=== PATIENT | male | born 1955 | race Caucasian/White ===

== ENCOUNTER 2017-03-30 18:59 | Emergency (ER) | payer MEDICARE, OTHER ==
[~2017-03-30] VITALS: Ht 160 cm; Wt 68.5 kg
[2017-03-30 19:03] VITALS: Ht 160 cm; Wt 68.5 kg
[2017-03-30] MEDS ORDERED: CEPHALEXIN 500 MG CAP PO STA (21:15)
[2017-03-30] MEDS ORDERED: LIDOCAINE 2% (MDV) 20 ML INJ INJ STA (21:15)
[2017-03-30] MEDS ORDERED: TRIMETHOPRIM/SULFAMETHOX (DS) TAB PO STA (21:15)
[2017-03-30] MEDS ORDERED: DIPHTH/TET/ACEL PERTUSS (ADULT) 0.5 ML VIAL IM* ONE (21:30)
[2017-03-30] MEDS ORDERED: SULF1TAB31 PO (22:06)
[2017-03-30] MEDS ORDERED: CEPH-443 PO (22:06)
--- NOTE | 2017-03-31 00:15 | ERD ---
ER Documentation Chief Complaint Date/Time DATE: 03/30/17 TIME: 23:50 Chief Complaint injured left middle finger at work 10 days ago. swelling and painful HPI 61 year old male presents to the emergency with abscess on left middle finger from an abrasion from a splinter 10 days prior to being seen. He states it is painful 10/10. Complains of swelling, denies fever. ROS All systems reviewed and are negative except as per history of present illness. Medications Home Meds Active Scripts Sulfamethoxazole/Trimethoprim* (Bactrim Ds* Tablet) 1 Each Tablet, 1 TAB PO BID , #14 TAB Prov:HIWOT MOORE PA-C 03/30/17 Cephalexin* (Keflex*) 500 Mg Capsule, 500 MG PO QID for 10 Days, CAP Prov:HIWOT MOORE PA-C 03/30/17 Allergies Allergies: Coded Allergies: aspirin (Verified Allergy, Unknown, 03/30/17) PMhx/Soc Medical and Surgical Hx: pt denies Surgical Hx History of Surgery: No Anesthesia Reaction: No Hx Neurological Disorder: No Hx Respiratory Disorders: No Hx Cardiac Disorders: No Hx Psychiatric Problems: No Hx Miscellaneous Medical Probl: Yes (back) Hx Alcohol Use: Yes Hx Substance Use: No Hx Tobacco Use: Yes Smoking Status: Current every day smoker Physical Exam Vitals Vital Signs Date Time Temp Pulse Resp B/P Pulse Ox O2 Delivery O2 Flow Rate FiO2 03/30/17 19:03 98.5 109 18 128/94 98 Physical Exam Const: WD/WN Head: Atraumatic Eyes: Normal Conjunctiva ENT: Normal External Ears, Nose and Mouth. Neck: Full range of motion..~ No meningismus. Resp: Clear to auscultation bilaterally Cardio: Regular rate and rhythm, no murmurs Abd: Soft, non tender, non distended. Normal bowel sounds Skin: [id number] fluctuant abscess at the lateral nail Back: No midline or flank tenderness Ext: No cyanosis, or edema Neur: Awake and alert Psych: Normal Mood and Affect Results 24 hrs Current Medications Medications (Trade) Dose Ordered Sig/Abhishek Route PRN Reason Start Time Stop Time Status Last Admin Dose Admin Lidocaine (Xylocaine 2% (Mdv) 20 ml) 20 ml ONCE STAT INJ 03/30/17 21:15 03/30/17 21:17 DC Cephalexin (Keflex) 500 mg ONCE STAT PO 03/30/17 21:15 03/30/17 21:17 DC 03/30/17 21:37 Trimethoprim/ Sulfamethoxazole (Bactrim (Ds)) 1 tab ONCE STAT PO 03/30/17 21:15 03/30/17 21:18 DC 03/30/17 21:37 Diphtheria/ Tetanus/Acell Pertussis (Adacel) 0.5 ml ONCE ONCE IM* 03/30/17 21:30 03/30/17 21:31 DC 03/30/17 21:38 Procedures/MDM 61 year old male presents to the emergency with paronychia abscess left middle finger from an abrasion from a splinter 10 days prior to being seen. There was no evidence of tendon or arterial damage. There was no evidence of osteomyelitis, lymphangitis, necrotizing fasciitis. Hemodynamically stable. Discussed two day wound check. return sooner if condition worsens. Prescription for keflex and bactrim were given. Patient understood and agreed with this plan. PROCEDURE NOTE: Verbal consent was obtained Wound was irrigated with normal saline Wound was cleansed with Betadine 4cc Lidocaine 1% with epinephrine was used as a digital block #11 blade scalpel was used for a single 0.25cm incision. Copious drainage of purulence occurred Wound packed with iodoform gauze strips Procedure tolerated without complications Wound dressed with sterile gauze. Departure Diagnosis: Primary Impression: Paronychia Condition: Stable Patient Instructions: Abscess, Incision And Drainage, Paronychia Additional Instructions: FOLLOW UP WITH YOUR PRIMARY CARE PHYSICIAN TOMORROW.Return to this facility if you are not improving as expected. Take all medicines as directed. Return to this facility if you are not improving as expected. HIWOT MOORE PA-C Mar 31, 2017 00:15
== END 2017-03-30 22:10 | disposition home or self-care (01) ==
LOC: FTE 18:59
DX: L03.012 Cellulitis of left finger (principal); F17.210 Nicotine dependence, cigarettes, uncomplicated; Z23 Encounter for immunization
CPT/HCPCS: 90471; 90715